=== PATIENT | female | born 1970 | race African-American/Black ===

== ENCOUNTER → 2024-08-07 10:29 | Outpatient (BNVA) | payer OTHER, SELFPAY | PROVIDERS: Visit Provider Internal Medicine | DX: Z09 Encounter for follow-up examination after completed treatment for conditions other than malignant neoplasm (principal); Z77.098 Contact with and (suspected) exposure to other hazardous, chiefly nonmedicinal, chemicals | CPT/HCPCS: 99203 ==

== ENCOUNTER → 2024-08-09 10:13 | Outpatient (BNVA) | payer OTHER, SELFPAY | PROVIDERS: Visit Provider Internal Medicine | DX: Z77.098 Contact with and (suspected) exposure to other hazardous, chiefly nonmedicinal, chemicals (principal) | CPT/HCPCS: 99213 ==

== ENCOUNTER → 2025-03-20 13:58 | Outpatient (BNVA) | payer OTHER, SELFPAY | PROVIDERS: Visit Provider Physician Assistant Medical | DX: S05.91XA Unspecified injury of right eye and orbit, initial encounter (principal); X58.XXXA Exposure to other specified factors, initial encounter; Z02.79 Encounter for issue of other medical certificate | CPT/HCPCS: 99202 ==